=== PATIENT | female | born 1980 | race Caucasian/White ===

== ENCOUNTER 2017-10-11 09:34 | Emergency (ER) | payer OTHER ==
[2017-10-11 09:43] VITALS: BP 138/79; PULSE 102; RESP 20; TEMP 99.8; O2SAT 99
--- NOTE | 2017-10-11 09:49 | C.PDOC ---
History Of Present Illness 47-year-old female, presents to the emergency department with complaints of sore throat, body aches, subjective fever, chills, cough and congestion for the past week. Patient states she is taking Theraflu at home with minimal relief. Denies nausea/vomiting, dizziness,back pain, symptoms, change in bowel habits or any other associated symptoms. No other complaints at this time. Time Seen by Provider: 10/11/17 09:49 Chief Complaint (Nursing): Flu-like Symptoms History Per: Patient History/Exam Limitations: no limitations Past Medical History Reviewed: Historical Data, Nursing Documentation, Vital Signs Vital Signs: Last Vital Signs Temp 99.8 F H 10/11/17 09:42 Pulse 102 H 10/11/17 09:42 Resp 20 10/11/17 09:42 BP 138/79 10/11/17 09:42 Pulse Ox 99 10/11/17 11:49 - Medical History PMH: Arthritis Family History: States: No Known Family Hx - Social History Hx Alcohol Use: Yes Hx Substance Use: No Review Of Systems Constitutional: Positive for: Fever, Chills ENT: Positive for: Throat Pain Respiratory: Positive for: Cough. Negative for: Shortness of Breath Gastrointestinal: Negative for: Vomiting Neurological: Negative for: Headache, Dizziness Physical Exam - Physical Exam Appears: Non-toxic, No Acute Distress Skin: Warm, Dry, No Rash Head: Atraumatic, Normacephalic Eye(s): bilateral: Normal Inspection Nose: Normal Oral Mucosa: Moist Lips: Normal Appearing Throat: Erythema (mild), No Exudate Neck: Normal ROM, Supple Chest: Symmetrical Cardiovascular: Rhythm Regular, No Murmur Respiratory: Normal Breath Sounds, No Accessory Muscle Use, No Wheezing Extremity: Normal ROM Neurological/Psych: Oriented x3, Normal Speech ED Course And Treatment O2 Sat by Pulse Oximetry: 99 (on RA) Pulse Ox Interpretation: Normal Disposition - Disposition Referrals: [facility] [Outside] Disposition: HOME/ ROUTINE Disposition Time: 10:10 Condition: STABLE Additional Instructions: Please follow up with your doctor. Take tylenol and ibuprofen as directed for fever/body aches. Return to the ER for any worsening symptoms, difficulty breathing, or for any other concerns. Prescriptions: Oseltamivir Phosphate [Tamiflu] 75 mg PO BID #10 capsule Instructions: Influenza (ED) Forms: Gen Discharge Inst Armenian, [employer] (Armenian), Work Excuse Print Language: POLISH - Clinical Impression Clinical Impression: Influenza-like illness - Scribe Statement The provider has reviewed the documentation as recorded by the Scribe (Ashkan Blas) All medical record entries made by the Scribe were at my direction and personally dictated by me. I have reviewed the chart and agree that the record accurately reflects my personal performance of the history, physical exam, medical decision making, and the department course for this patient. I have also personally directed, reviewed, and agree with the discharge instructions and disposition.
== END 2017-10-11 10:20 | disposition home or self-care (01) ==
LOC: C.ER 09:34
DX: J11.1 Influenza due to unidentified influenza virus with other respiratory manifestations (principal)

== ENCOUNTER 2017-11-07 15:53 | Emergency (ER) | payer OTHER ==
[2017-11-07 16:03] VITALS: RESP 18; TEMP 98.3; O2SAT 99
[2017-11-07] MEDS ORDERED: DTap Vaccine 0.5 ml Vial IM STA (17:54)
--- NOTE | 2017-11-07 18:01 | C.PDOC ---
History Of Present Illness 37 y/o female presents to ED for evaluation of right calf laceration sustained at 3pm today. Patient states she dropped glass plate and glass cut area, cleaned area with alcohol wipes but is concern glass went inside which prompted visit to ED. Patient denies weakness, numbness, tingling or any other complaints at this time. Time Seen by Provider: 11/07/17 17:37 Chief Complaint (Nursing): Abnormal Skin Integrity History Per: Patient History/Exam Limitations: no limitations Onset/Duration Of Symptoms: Hrs Current Symptoms Are (Timing): Still Present Past Medical History Reviewed: Historical Data, Nursing Documentation, Vital Signs Vital Signs: Last Vital Signs Temp 98.3 F 11/07/17 16:00 Pulse 68 11/07/17 19:02 Resp 18 11/07/17 19:02 BP 110/63 11/07/17 19:02 Pulse Ox 99 11/07/17 19:02 - Medical History PMH: Arthritis Surgical History: No Surg Hx Family History: States: No Known Family Hx - Social History Hx Alcohol Use: Yes Hx Substance Use: No - Immunization History Hx Tetanus Toxoid Vaccination: No Hx Influenza Vaccination: No Hx Pneumococcal Vaccination: No Review Of Systems Except As Marked, All Systems Reviewed And Found Negative. Musculoskeletal: Positive for: Leg Pain, Foot Pain Physical Exam - Physical Exam Appears: Non-toxic, No Acute Distress Skin: Warm, Dry, No Rash, Other (3cm laceration to back of right lower calf) Head: Atraumatic, Normacephalic Eye(s): bilateral: Normal Inspection Oral Mucosa: Moist Extremity: Normal ROM, No Deformity, No Swelling Pulses: Left Dorsalis Pedis: Normal, Right Dorsalis Pedis: Normal Neurological/Psych: Oriented x3, Normal Motor, Normal Sensation Gait: Steady ED Course And Treatment O2 Sat by Pulse Oximetry: 99 (RA) Pulse Ox Interpretation: Normal Laceration - Laceration Repair right lower calf Wound Length (In cm): 3 Description Of Wound: Linear Wound Cleansed With: Betadine, Sterile Saline Anesthesia: Lidocaine 1% Wound Examination: Irrigated With Saline (300cc), No FB With Wound Exploration Wound Closure: Suture (4) Suture Technique And Material Used: Nylon (5-O) Medical Decision Making Medical Decision Making: Assessment: calf laceration preliminary reading of xray and exploration of wound demonstrated no gross foreign body and Progress: Patient tolerated procedure well. Patient advised Wound check in 2 days, Suture removal in 10 days. Disposition Counseled Patient/Family Regarding: Studies Performed, Diagnosis, Need For Followup - Disposition Disposition: HOME/ ROUTINE Disposition Time: 18:47 Condition: STABLE Additional Instructions: follow up with your doctor in 2 days call to make an appointment take medications as prescribed return to ED if symptoms worsens or progress keep dry for 24 hours warm water and soap to clean thereafter apply bacitracin twice daily wound check in 2 days suture removal in 10 days Instructions: Laceration Repair, Wound Care Forms: Gen Discharge Inst Syrian, [employer] (Syrian) Print Language: TANZANIAN - Clinical Impression Clinical Impression: Laceration of skin - Scribe Statement The provider has reviewed the documentation as recorded by the Nahid Mas All medical record entries made by the Sonyibhannah were at my direction and personally dictated by me. I have reviewed the chart and agree that the record accurately reflects my personal performance of the history, physical exam, medical decision making, and the department course for this patient. I have also personally directed, reviewed, and agree with the discharge instructions and disposition.
[2017-11-07] MEDS ORDERED: Tdap Vaccine 0.5 ml Vial (10-64 yrs) IM ONE (18:10)
[2017-11-07 19:03] VITALS: BP 110/63; PULSE 68
[2017-11-07] MEDS ORDERED: Bacitracin 500 Units/gm Oint Foilpak UD ONE (19:05)
--- NOTE | 2017-11-08 09:15 | RAD ---
PROCEDURE: Radiographs of the right tibia and fibula. HISTORY: foreign body COMPARISON: None available. TECHNIQUE: Frontal and lateral views obtained. FINDINGS: BONES: No fracture or destructive lesion. JOINT SPACES: Unremarkable. OTHER FINDINGS: None. IMPRESSION: Unremarkable radiographs of the right tibia and fibula.
== END 2017-11-07 19:03 | disposition home or self-care (01) ==
LOC: C.ER 15:53
DX: S81.811A Laceration without foreign body, right lower leg, initial encounter (principal); W25.XXXA Contact with sharp glass, initial encounter; Y92.9 Unspecified place or not applicable; Z23 Encounter for immunization

== ENCOUNTER 2017-11-17 09:26 | Emergency (ER) | payer OTHER ==
--- NOTE | 2017-11-17 10:18 | C.PDOC ---
History Of Present Illness 37 y/o female presents to the ER for suture removal in the posterior right calf. Patient states that she sustained a laceration in her right calf 10 days ago. She came to [facility] and 4 stitches were placed on the posterior right calf. Patient does not have any complaints. Time Seen by Provider: 11/17/17 09:57 Chief Complaint (Nursing): Suture/Staple Removal History Per: Patient History/Exam Limitations: no limitations Past Medical History Reviewed: Historical Data, Nursing Documentation, Vital Signs - Medical History PMH: Arthritis Surgical History: No Surg Hx Family History: States: No Known Family Hx - Social History Hx Alcohol Use: Yes Hx Substance Use: No - Immunization History Hx Tetanus Toxoid Vaccination: No Hx Influenza Vaccination: No Hx Pneumococcal Vaccination: No Review Of Systems Except As Marked, All Systems Reviewed And Found Negative. Constitutional: Negative for: Fever, Chills Skin: Positive for: Other (well- healing wound to right calf) Neurological: Negative for: Headache Physical Exam - Physical Exam Appears: Non-toxic, No Acute Distress Skin: Normal Color, Warm Head: Atraumatic, Normacephalic Eye(s): bilateral: Normal Inspection Nose: Normal Oral Mucosa: Moist Neck: Supple Chest: Symmetrical Extremity: Other (well-healing 2 cm laceration to the posterior right calf with 4 stitches which have been removed ) Neurological/Psych: Oriented x3, Normal Speech, Normal Motor, Normal Sensation Medical Decision Making Medical Decision Making: Progress: Patient has well-healing 2 cm laceration to the right posterior calf with 4 stitches. The stitches have been removed. Patient tolerated well. Disposition Counseled Patient/Family Regarding: Diagnosis - Disposition Referrals: [facility] [Outside] Disposition: HOME/ ROUTINE Disposition Time: 10:17 Condition: STABLE Instructions: Stitches Removal Forms: [facility] (Prydeinig), Gen Discharge Inst Prydeinig - POA Present On Arrival: None - Clinical Impression Clinical Impression: Removal of suture - Scribe Statement The provider has reviewed the documentation as recorded by the Nahid Greene Provider Attestation: All medical record entries made by the Sonyibe were at my direction and personally dictated by me. I have reviewed the chart and agree that the record accurately reflects my personal performance of the history, physical exam, medical decision making, and the department course for this patient. I have also personally directed, reviewed, and agree with the discharge instructions and disposition.
== END 2017-11-17 10:26 | disposition home or self-care (01) ==
LOC: C.ER 09:26
DX: Z48.02 Encounter for removal of sutures (principal)

== ENCOUNTER 2018-02-01 09:23 | Day surgery (SDC) | payer OTHER ==
[2018-02-01] MEDS ORDERED: cefOXitin IV 1 gm in Dextrose 1 GM/50 ML BAG IVPB ONE (10:44)
[2018-02-01] MEDS ORDERED: Strong Iodine Topical Sol. 5%-10% ONE (10:44)
[2018-02-01] MEDS ORDERED: Midazolam 2 MG/2 ML VIAL ONE (10:46)
[2018-02-01] MEDS ORDERED: Propofol 10 mg/ml Inj (20 ML) ONE (10:46)
[2018-02-01] MEDS ORDERED: Lidocaine/Epinephrine 1% 1:100000 10 ML IJ ONE (10:54)
[2018-02-01] MEDS ORDERED: Clindamycin 2% Vaginal Cream(40 gm) ONE (11:06)
[2018-02-01] MEDS ORDERED: ePHEDrine 50 mg/ml Inj ONE (11:10)
[2018-02-01] MEDS ORDERED: HYDROmorphone 0.5 mg/0.5 ml ISec IVP PRN (11:20)
[2018-02-01 12:28] VITALS: RESP 16
[2018-02-01 13:24] VITALS: BP 127/59; PULSE 76; TEMP 98.4; O2SAT 98
--- NOTE | 2018-02-06 19:03 | PCM.SURG1 ---
Surgeon's Initial Post Op Note - Surgeon's Notes Surgeon: dr mercer Process Automation Engineer: none Type of Anesthesia: General LMA Anesthesia Administered By: dr carrion Pre-Operative Diagnosis: cervical dyslasia Operative Findings: see the op re Post-Operative Diagnosis: same Operation Performed: leep Specimen/Specimens Removed: cerix. ecc Estimated Blood Loss: EBL {In ML}: 50 Blood Products Given: N/A Drains Used: No Drains Post-Op Condition: Good Date of Surgery/Procedure: 02/01/18 Time of Surgery/Procedure: 15:00
--- NOTE | 2018-02-06 19:10 | OP ---
PROCEDURE DATE: 02/01/2018 PREOPERATIVE DIAGNOSIS: A 37-year-old 2, para 2 with cervical dysplasia. POSTOPERATIVE DIAGNOSIS: A 37-year-old 2, para 2 with cervical dysplasia. SURGEON: Lionel Toussaint MD SECTION BEAMER: None. TYPE OF ANESTHESIA: General anesthesia. ANESTHESIOLOGIST: Dr. Amin. COMPLICATIONS: None. PROCEDURE PERFORMED: Loop electrosurgical excision procedure. DESCRIPTION OF PROCEDURE: After informed consent was obtained, the patient was brought to the operating room, placed on the table where general anesthesia was given. When anesthesia was found to be sufficient, she was prepped and draped in normal sterile fashion. Examination revealed uterus to be normal. No pelvic or adnexal mass. Anterior lip of the cervix was grasped with a tenaculum, and 20 mL of lidocaine was given. After that, the anterior lip of the cervix was again grasped with Allis clamp. The loop electrode 2 mm was used to do the LEEP. It was started from the 12 o'clock, and then the part of the cervix was taken out with electrode. After that, the LEEP was done. After that, it was coagulated using the Bovie. After that, the was done. After that, it was coagulated. It was not bleeding. After that, Monsel was placed. was taken. It was not bleeding. The patient tolerated the procedure well. Lap, sponge, and instrument counts were correct x2. Lionel Toussaint MD
== END 2018-02-01 13:30 | disposition home or self-care (01) ==
LOC: C.SDS 09:23
PROVIDERS: ATTEND Obstetrics & Gynecology
DX: N87.0 Mild cervical dysplasia (principal)
CPT/HCPCS: 57522; 88305; J0694; J2250; J2704; J3010

== ENCOUNTER 2018-12-11 07:04 | Inpatient (IN) | payer MEDICAID ==
[2018-12-11 07:52] VITALS: BMI 32.5
[2018-12-11] MEDS ORDERED: Oxytocin 30 UNIT in NS 500 ml 30 UNITS/500 ML BAG IV ONE (08:50)
[2018-12-11] MEDS ORDERED: Lactated Ringer's 1,000 ML IV SCH (09:00)
[2018-12-11 09:45] LABS: BASO % 0.7 % (0.0-2.0); EOS % 0.2 % (0.0-4.0); HEMOGLOBIN 13.2 g/dL (11.0-16.0); LYMPH # 1.9 K/uL (1.0-4.3); LYMPH % 32.5 % (20.0-40.0); MEAN CELL VOLUME 88.2 fL (81.0-99.0); MEAN CORPUSCULAR HGB CONC 32.9 g/dL (33.0-37.0); MEAN PLATELET VOLUME 12.3 fL (7.2-11.7); MONO # 0.4 K/uL (0.0-0.8); MONO % 7.3 % (0.0-10.0); NEUT # 3.4 K/uL (1.8-7.0); NEUT % 59.3 % (50.0-75.0); NRBC % 0.1 % (0.0-2.0); RBC 4.57 Mil/uL (3.80-5.20); RED CELL DISTRIBUTION WIDTH 14.3 % (11.5-14.5); WHITE BLOOD COUNT 5.8 K/uL (4.8-10.8)
[2018-12-11 09:46] LABS: SQUAMOUS EPITHIAL 2 /hpf (0-5); URINE BILIRUBIN NEGATIVE (NEGATIVE); URINE BLOOD NEGATIVE (NEGATIVE); URINE CLARITY Clear (Clear); URINE COLOR Yellow (YELLOW); URINE GLUCOSE (UA) NORMAL (Normal); URINE LEUKOCYTE ESTERASE NEG Leu/uL (Negative); URINE PROTEIN NEGATIVE (NEGATIVE); URINE UROBILINOGEN NORMAL mg/dL (0.2-1.0)
[2018-12-11 09:51] LABS: ALB/GLOB RATIO 1.3 (1.0-2.1); ALBUMIN 3.9 g/dL (3.5-5.0); ALT/SGPT 18 U/L (9-52); AST/SGOT 33 U/L (14-36); BLOOD UREA NITROGEN 14 mg/dL (7-17); CALCIUM 9.2 mg/dl (8.6-10.4); GFR NON-AFRICAN AMERICAN > 60
[2018-12-11] MEDS ORDERED: Fentanyl/Bupivacaine HCl 250 ML EPI ONE (13:51)
--- NOTE | 2018-12-11 19:25 | OBHP ---
Datetime: 12/11/2018 18:52 Amniotic Fluid Color, Provider: Clear Gestation - Est Wks by US: 40.0 NICHD Variability Prov Fetus A: Moderate 6-25bpm Dilatation, Provider: 10 Effacement, Provider: 100 Station, Provider: -1 Datetime: 12/11/2018 09:30 IP Adm Impression: Term, intrauterine ; No Active Labor; Intact Membranes IP Chief Complaint Other: Grand Multiparity IP Admit Plan: Initiate labor induction protocol Admit Comment, IP Provider: 38 y/o F at 40.0 wks gestation sent from clinic for scheduled IO L. Pt has noted movement but has not been feeling contractions. She had 1 induced and 1 ectopic prior. Her prior largest baby was 9lb 8oz. She has been following with Dr. Hall for care. She has been taking multivitamins. She requests that she NOT receive epid ural anesthesia for this . She had previously seen Dr. Toussaint where she was found to have an abnormal PAP smear and underwent LEEP procedure 02/01/18. 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 She was supposed to followup 6 months afterwards however she lost her insurance and di d not follow up. She did not undergo repeat PAP smear afterwards. She currently denies any complaints . She denies fevers, chills, headache, dizziness, chest pain, palpitations, shortness of breath, naus ea, vomiting, constipation, diarrhea, dysuria. OBhx: Date of last live : 4 children born in 1996, 1998, 2001, 2010. Ectopic in 201 2. Pt doesn't recall when induced occurred. GynHx: Pap Smear (11/2017): Cervical dysplasia. Colposcopy 12/06/17: CIN2. ECC (02/01/18): "Fragments of cervical mucosa showing reactive changes. Negative for dysplasia or c arcinoma:. Cervical biopsy (02/01/18): "MIGUE 1, focally extending to endocervical and ectocervical margins. Neg ative for invasive carcinoma." Menarche 12y/o, LMP: 03/06/18. Periods Q28D lasting 4 days w/ light bleeding. Previously used oral contraceptives prior to this , doesn't recall which medication. History of chlamydia _1 year prior that was treated. PMH: Denies All: Seasonal PSH: LEEP 01/2018 SH: Denies tobacco, ETOH, illicit drug use FM: Mother: HLD, Father: Denies Meds: vitamins FOREIGN LAW CONSULTANT: Dr. Hall. Previously seen Dr. Toussaint Cytology Manager: Dr. Ordonez Vitals: T:98.8 BP: 112/55 P: 66 SpO2: 98% RA Exam as noted Labs: (11/23/18) HepB/HIV/GBS/G/C/RPR: (-). Rubella Immune 05/22/18 5.8>13.2/40.3/89 (12/11) A: 38 y/o F at 40.0 wks gestation sent from clinic for scheduled IOL of IUP P: - Term - NST. Category 1, FHR 150s - Obtain CBC/CMP/Type _ Screen/U/A - IOL. Administer pitocin - LR @ 125cc/hr - Admit to hospital - Pt requests no epidural currently Aggie Gee PGY1 Pt seen and examined with Dr. Marcial and agreed with all of his findings and POC. Pelvic Type - PN: Adequate Extremities - PN: Normal Abdomen - PN: Normal Back - PN: Not Done Breast - PN: Not Done Lungs - PN: Normal Heart - PN: Normal Thyroid - PN: Normal Neurologic - PN: Normal HEENT - PN: Normal General - PN: Normal Presentation-Admit: Vertex FHR - Baseline A Provider: 130 Membranes, Provider: Intact Contraction Comments Provider: 6-7 Comments, ACOG Physical Exam: Gen: WDWN, NAD HEENT: Normocephalic, atraumatic, EOMI Neuro: AxOx3. No focal deficits CV: RRR, S1/S2 present. No m/r/g Pulm: CTA b/l u/l lobes Abdomen: Soft, distended Pelvic: Cervix 50% effaced, 1-2cm dilation, -3 station Extremities: trace non-pitting edema IP Hx Assessment: The History has been Reviewed and is Current EGA AdmitDate IP: 40.0 Vital Signs Provider: Reviewed IP Chief Complaint: Scheduled induction of labor; Other NICHD Accel Fetus A IP Provider: 10X10 FHR Category Provider Fetus A: Category I NICHD Decel Fetus A IP Provider: None Genitourinary Exam: Not Done DTRs - PN: Not Done
--- NOTE | 2018-12-11 19:48 | OBADHP ---
Datetime: 12/11/2018 18:52 Amniotic Fluid Color, Provider: Clear Gestation - Est Wks by US: 40.0 NICHD Variability Prov Fetus A: Moderate 6-25bpm Dilatation, Provider: 10 Effacement, Provider: 100 Station, Provider: -1 Datetime: 12/11/2018 09:30 IP Chief Complaint Other: Grand Multiparity Admit Comment, IP Provider: 38 y/o F at 40.0 wks gestation sent from clinic for scheduled IO L. Pt has noted movement but has not been feeling contractions. She had 1 induced and 1 ectopic prior. Her prior largest baby was 9lb 8oz. She has been following with Dr. Hall for care. She has been taking multivitamins. She requests that she NOT receive epid ural anesthesia for this . She had previously seen Dr. Toussaint where she was found to have an abnormal PAP smear and underwent LEEP procedure 02/01/18. 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 She was supposed to followup 6 months afterwards however she lost her insurance and di d not follow up. She did not undergo repeat PAP smear afterwards. She currently denies any complaints . She denies fevers, chills, headache, dizziness, chest pain, palpitations, shortness of breath, naus ea, vomiting, constipation, diarrhea, dysuria. OBhx: Date of last live : 4 children born in 1996, 1998, 2001, 2010. Ectopic in 201 2. Pt doesn't recall when induced occurred. GynHx: Pap Smear (11/2017): Cervical dysplasia. Colposcopy 12/06/17: CIN2. ECC (02/01/18): "Fragments of cervical mucosa showing reactive changes. Negative for dysplasia or c arcinoma:. Cervical biopsy (02/01/18): "MIGUE 1, focally extending to endocervical and ectocervical margins. Neg ative for invasive carcinoma." Menarche 12y/o, LMP: 03/06/18. Periods Q28D lasting 4 days w/ light bleeding. Previously used oral contraceptives prior to this , doesn't recall which medication. History of chlamydia _1 year prior that was treated. PMH: Denies All: Seasonal PSH: LEEP 01/2018 SH: Denies tobacco, ETOH, illicit drug use FM: Mother: HLD, Father: Denies Meds: vitamins ELA TEACHER: Dr. Hall. Previously seen Dr. Toussaint Calender Machine Operator: Dr. Ordonez Vitals: T:98.8 BP: 112/55 P: 66 SpO2: 98% RA Exam as noted Labs: (11/23/18) HepB/HIV/GBS/G/C/RPR: (-). Rubella Immune 05/22/18 5.8>13.2/40.3/89 (12/11) A: 38 y/o F at 40.0 wks gestation sent from clinic for scheduled IOL of IUP P: - Term - Grand Multiparity - AMA - NST Reactive. Category 1, FHR 130s - Obtain Admit labs CBC/CMP/Type _ Screen/U/A - IOL. Administer pitocin - LR @ 125cc/hr - Admit to hospital - Not sure if she wants an epidural - Anticipate a vaginal delivery Aggie Gee PGY1 Pt seen and examined with Dr. Marcial and agreed with all of his findings and POC. Pelvic Type - PN: Adequate Extremities - PN: Normal Abdomen - PN: Normal Back - PN: Not Done Breast - PN: Not Done Lungs - PN: Normal Heart - PN: Normal Thyroid - PN: Normal Neurologic - PN: Normal HEENT - PN: Normal General - PN: Normal Presentation-Admit: Vertex FHR - Baseline A Provider: 130 Membranes, Provider: Intact Contraction Comments Provider: 6-7 Comments, ACOG Physical Exam: Gen: WDWN, NAD HEENT: Normocephalic, atraumatic, EOMI Neuro: AxOx3. No focal deficits CV: RRR, S1/S2 present. No m/r/g Pulm: CTA b/l u/l lobes Abdomen: Soft, distended Pelvic: Cervix 50% effaced, 1-2cm dilation, -3 station Extremities: trace non-pitting edema IP Hx Assessment: The History has been Reviewed and is Current Vital Signs Provider: Reviewed IP Chief Complaint: Scheduled induction of labor; Other NICHD Accel Fetus A IP Provider: 10X10 FHR Category Provider Fetus A: Category I NICHD Decel Fetus A IP Provider: None Genitourinary Exam: Not Done DTRs - PN: Not Done EGA AdmitDate IP: 40.0 IP Adm Impression: Term, intrauterine ; No Active Labor; Intact Membranes IP Admit Plan: Initiate labor induction protocol (Annotations: Data stored by CPN on behalf of user)
[2018-12-11] MEDS ORDERED: Oxycodone/Acetaminophen 5/325 mg Tab PO PRN ×2 (20:02)
--- NOTE | 2018-12-11 21:11 | OBPN ---
Datetime: 12/11/2018 18:52 IP Progress Impression: Normal progression of labor IP Informed Consent Obtain: Vaginal Delivery IP Procedures: Sterile Vag Exam IP Progress Plan: Continue present management Amniotic Fluid Color, Provider: Clear Gestation - Est Wks by US: 40.0 NICHD Variability Prov Fetus A: Moderate 6-25bpm Dilatation, Provider: 10 Effacement, Provider: 100 Station, Provider: -1 Datetime: 12/11/2018 16:41 IP Progress Note Comment: SVE: 2cm/70%/-3 Membrane ruputred with scant clear fluid seen IUP placed Epidural placed at 14:17 and working well Continue with pitocin Continue with present management Expectant vaginal delivery All plans and management discussed with Dr. Melvin Pt seen and examined with Dr. Jones and all of her findings and POC were fully reviewed and agree d on. Datetime: 12/11/2018 09:30 Membranes, Provider: Intact Contraction Comments Provider: 6-7 FHR - Baseline A Provider: 130 Presentation-Admit: Vertex Vital Signs Provider: Reviewed NICHD Accel Fetus A IP Provider: 10X10 FHR Category Provider Fetus A: Category I NICHD Decel Fetus A IP Provider: None
--- NOTE | 2018-12-11 21:15 | OBPN ---
Datetime: 12/11/2018 18:52 IP Progress Note Comment: Patient was seen and examined at bedside. Patient was resting comfortable SVE: 10cm/100%/-1 Patient placed in upright position with peanut ball Continue with present management Expectant management All plans and management discussed with Dr. Melvin and agreed on. EG
[2018-12-12 07:15] LABS: BASO % 0.5 % (0.0-2.0); EOS % 0.1 % (0.0-4.0); LYMPH # 1.6 K/uL (1.0-4.3); LYMPH % 17.6 % (20.0-40.0); MEAN CELL VOLUME 87.2 fL (81.0-99.0); MEAN CORPUSCULAR HEMOGLOBIN 29.3 pg (27.0-31.0); MEAN CORPUSCULAR HGB CONC 33.6 g/dL (33.0-37.0); MEAN PLATELET VOLUME 12.8 fL (7.2-11.7); MONO # 0.5 K/uL (0.0-0.8); MONO % 5.8 % (0.0-10.0); NEUT # 6.8 K/uL (1.8-7.0); RBC 4.42 Mil/uL (3.80-5.20); RED CELL DISTRIBUTION WIDTH 14.4 % (11.5-14.5)
[2018-12-12 07:41] VITALS: O2SAT 98
[2018-12-12] MEDS: Multiple Vitamins Tab PO SCH (09:32)
[2018-12-13] MEDS: Multiple Vitamins Tab PO SCH (09:35)
--- NOTE | 2018-12-13 15:47 | OBDCSUM ---
Datetime: 12/13/2018 11:43 Discharged to, Provider: Home Follow up at, Provider: JAMISON Disch Instr Activity: Normal activity; May Shower Disch Instr Diet: Regular Discharge Diet restrict Prov: none Discharge Time: 12/13/2018 11:43 Follow up in weeks, Provider: 6 weeks Disch Referrals: None Disch Activity Restrictions: No exercising; No lifting; No sexual activity; Nothing in vagina - Inte rcourse, tampons, douche Discharge Comment, Provider: Hemodynamically stable, afebrile, ambulating, tolerating diet, passing gas and stool - Encourage oral hydration _ ambulation - Continue pain management with ibuprofen 600mg PO Q6H PRN - Will continue routine post- care - Follow up with [facility]GR[facility], Dr. Hall in 6 weeks - Pt is not requesting circumcision for baby boy - Pt was told to follow up with her PMD due to low platelet count noted on admission and discharge . Also, patient was called with [employer] service via [employer] ([phone]) and it was reiterated to patient via phone call to follow with her PMD as soon as possible due to noted low platelet levels during her admission. - Pt stable to be discharged today Datetime: 12/13/2018 07:48 Discharged to, Provider: Home Follow up at, Provider: Dr. Rafael ZENG Disch Instr Activity: Normal activity; May be up to bathroom; May be up for meals; May Shower Disch Instr Diet: Regular Discharge Instructions, Provider: Routine instructions given Discharge Diagnosis, Provider: Term Delivered Discharge Time: 12/13/2018 07:48 Follow up in weeks, Provider: 6 weeks Disch Referrals: None Contraception discussed, Prov: Yes Disch Activity Restrictions: No sexual activity; Nothing in vagina - Keener, tampons, douche Discharge Comment, Provider: Pt seen and examined at bedside this am. No acute nursing events overni ght. Pt reports she had minimal bloody discharge from vagina as well as hematuria but less than yeste rday per patient. She still has RLQ pain that is better from yesterday and it resolves with ibuprofen treatment. She has been ambulating in the room without difficulty, tolerating her diet, breastfeedin g without difficulty. She has passed gas yesterday and had a bowel movement yesterday evening, no BM/ flatus this am. She denies fevers, chills, headache, dizziness, vision changes, chest pain, palpitati ons, shortness of breath, nausea, vomiting, hematochezia, diarrhea. Vital: T: 98.5 BP: 119/79 P: 60 SpO2: 99% on RA Physical Exam: Gen: WDWN, NAD HEENT: Normocephalic, atraumatic Neuro: No focal deficits CV: RRR, No m/r/g Pulm: CTA b/l u/l lobes Abdomen: Soft, non-distended. Fundus at the level umbilicus Ext: trace non-pitting edema CBC: 9.0>13/38<71 (12/12/18) Assesment: 38 y/o grandmultiparous AMA PPD2 s/p with appropriate post- progress Plan: - Hemodynamically stable, afebrile, ambulating, tolerating diet, passing gas and stool - Encourage oral hydration _ ambulation - Continue pain management with ibuprofen - Will continue routine post- care - Follow up with [facility], Dr. Hall in [address] [facility] - Pt is not requesting circumcision for baby boy - Contraception discussed, pt requested BTL, consent obtained - Pt stable to be discharged today Aggie Gee PGY1 Contraception after Delivery: Tubal Ligation
--- NOTE | 2018-12-13 15:48 | OBPPN ---
Datetime: 12/13/2018 07:26 PP Pain Prov: Within normal limits PP Nausea Prov: Denies PP Flatus Prov: Yes PP BM Prov: Yes PP Breasts Prov: Not Done PP Heart Prov: Normal PP Lungs Prov: Normal PP Abdomen/Uterus Prov: Normal PP Lochia Prov: Normal PP Vulva/Perineum Prov: Not Done PP CVA Tenderness Prov: Not Done PP Extremities Prov: Normal PP C/S Incision Prov: Not Applicable PP Progress Prov: Normal PP Comments Phys Exam Prov: Gen: WDWN, NAD HEENT: Normocephalic, atraumatic Neuro: No focal deficits CV: RRR, No m/r/g Pulm: CTA b/l u/l lobes Abdomen: Soft, non-distended. Fundus at the level of umbilicus Ext: trace non-pitting edema PP Impression Prov: Normal progression PP Plan Prov: Discharge PP Progress Note Prov: Pt seen and examined at bedside this am. No acute nursing events overnight. P t reports she had minimal bloody discharge from vagina as well as hematuria but less than yesterday p er patient. She still has very minimal RLQ pain that is better from yesterday and it resolves with ib uprofen treatment. She has been ambulating in the room without difficulty, tolerating her diet, breas tfeeding without difficulty. She has passed gas yesterday and had a bowel movement yesterday evening, no BM/flatus this am. She denies fevers, chills, headache, dizziness, vision changes, chest pain, pa lpitations, shortness of breath, nausea, vomiting, hematochezia, diarrhea. Vital: T: 98.5 BP: 119/79 P: 60 SpO2: 99% on RA Physical Exam: As noted CBC: 5.8>13.2/40.3<89, 9.0>13/38<71 (12/12/18) Assesment: 38 y/o grandmultiparous AMA PPD2 s/p with appropriate post- progress Plan: - Hemodynamically stable, afebrile, ambulating, tolerating diet, passing gas and stool - Encourage oral hydration _ ambulation - Continue pain management with ibuprofen/percocet - Will continue routine post- care - Follow up with [employer] [facility], Dr. Hall in 6 weeks - Pt is not requesting circumcision for baby boy - Pt was told to follow up with her PMD due to low platelet count noted on admission and discharge . Also, patient was called with [facility] service via [employer] ([phone]) and it was reiterated to patient via phone call to follow with her PMD as soon as possible due to noted low platelet levels during her admission. - Pt stable to be discharged today Aggie Gee PGY1 IP PP Procedures: None Vital Signs Provider PP: Reviewed
[2018-12-13 18:58] VITALS: BP 116/66; PULSE 73; RESP 20; TEMP 98.6
== END 2018-12-13 14:58 | disposition home or self-care (01) | DRG 373 ==
LOC: C.EROB 07:04 → C.4D 08:47 → C.4M 22:20
PROVIDERS: ADMIT Obstetrics & Gynecology; ATTEND Obstetrics & Gynecology
PROC: 10E0XZZ Delivery of Products of Conception, External Approach (ICD-10-PCS; principal; 2018-12-11)
PROC: 10907ZC Drainage of Amniotic Fluid, Therapeutic from Products of Conception, Via Natural or Artificial Opening (ICD-10-PCS; 2018-12-11)
DX: O48.0 Post-term pregnancy (principal); O75.89 Other specified complications of labor and delivery; R31.9 Hematuria, unspecified; Z3A.40 40 weeks gestation of pregnancy; Z37.0 Single live birth; Z87.410 Personal history of cervical dysplasia